=== PATIENT | female | born 1995 | race African-American/Black ===

== ENCOUNTER 2022-07-20 07:43 | Emergency (ER) | payer MEDICAID, SELFPAY ==
--- NOTE | ~2022-07-20 | XR_ITS ---
EXAMINATION: XR hand LT min 3V DATE: 07/20/2022 08:08 INDICATION: Left hand numbness and tingling. TECHNIQUE: 3 views of left hand were obtained. COMPARISON: None. FINDINGS: Bone alignment is normal. No fracture. Joint spaces are well maintained. IMPRESSION: 1. Normal left hand. Reviewed, dictated and finalized at location A. IMPRESSION: 1. Normal left hand.
[2022-07-20 07:48] VITALS: BP 126/90; PULSE 87; RESP 14; TEMP 36.5; O2SAT 100
[2022-07-20] MEDS: NAPROXEN 500 MG TABLET PO (08:17)
--- NOTE | 2022-07-20 08:55 | ED.GENADULT ---
HPI - General Adult General Chief complaint: Neuro Symptoms/Deficit Stated complaint: left hand numbnes Time Seen by Provider: 07/20/22 07:53 Source: patient and RN notes reviewed Mode of arrival: ambulatory Limitations: no limitations History of Present Illness HPI narrative: This is a 27 year old female right hand dominant who presents for evaluation of left hand pain. She has noticed intermittent left palmar hand pain with movement since Friday. 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 She also reports intermittent numb feeling to her left hand. She denies neck pain, arm weakness, headache, injury or any other complaints. She has not taken anything for pain. Related Data Home Medications Medication Instructions Recorded Confirmed No Home Medications 07/20/22 07/20/22 Allergies Allergy/AdvReac Type Severity Reaction Status Date / Time No Known Allergies Allergy Verified 07/20/22 08:00 Review of Systems Constitutional: Constitutional: Denies chills and Denies fatigue PMFSH Past Medical History Medical History (Updated 07/20/22 @ 09:11 by Rehana Jon MD) Patient denies medical problems Surgical History Surgical History (Updated 07/20/22 @ 08:58 by Rehana Jon MD) No pertinent past surgical history Exam Const: General: no acute distress and alert Nutritional Appearance: well nourished Orientation/consciousness: patient oriented x3 HENMT: Head: normal to inspection Eyes: EOM: EOMs intact bilaterally Resp: Effort & Inspection: normal respiratory effort Cardio: Other: strong left radial pulse Skin: General skin exam: normal color Rashes: no rashes Wounds: no wounds Neuro: General: patient oriented x3, moves all extremities and CN's II-XI intact bilaterally Other: sensation intact Extrem: General: no clubbing, cyanosis or edema and no pedal edema Other: FROM, no erythema, mild palmar pain to palpation. sensation intact Psych: Mental Status: mental status grossly normal Affect: normal affect Attitude: cooperative Course Reevaluation(s) Reevaluation #1: I Discussed with patient no abnormality on xray. She may have some tendonitis. I Discussed discharge plan and treatment Date: 07/20/22 Time: 09:08 Vital Signs Vital signs: Vital Signs Temperature 97.7 F 07/20/22 07:48 Pulse Rate 87 07/20/22 07:48 Respiratory Rate 14 07/20/22 07:48 Blood Pressure 126/90 07/20/22 07:48 Pulse Oximetry 100 07/20/22 07:48 Temperature 97.7 F 07/20/22 07:48 Pulse Rate 71 07/20/22 09:26 Respiratory Rate 14 07/20/22 09:26 Blood Pressure 123/87 07/20/22 09:26 Pulse Oximetry 99 07/20/22 09:26 Medical Decision Making Vital Signs Vital Signs: Vital Signs Temperature 97.7 F 07/20/22 07:48 Pulse Rate 87 07/20/22 07:48 Respiratory Rate 14 07/20/22 07:48 Blood Pressure 126/90 07/20/22 07:48 Pulse Oximetry 100 07/20/22 07:48 Temperature 97.7 F 07/20/22 07:48 Pulse Rate 71 07/20/22 09:26 Respiratory Rate 14 07/20/22 09:26 Blood Pressure 123/87 07/20/22 09:26 Pulse Oximetry 99 07/20/22 09:26 Imaging Data Radiologist's impression: ITS Impressions Hand X-Ray 07/20/22 08:18 IMPRESSION: 1. Normal left hand. Discharge Plan Discharge Clinical Impression: Arthralgia of hand, left Patient Disposition: Home, Self-Care Condition: Stable Instructions: Antibiotic Form, Arthralgia (ED), Tendinitis (ED) Additional Instructions: I recommend you get hand brace to wear for at least a couple weeks and take NSAIDS such as aleve or ibuprofen for your pain. Follow up with your primary care provider if you do not have improvement. Prescriptions: No Action No Home Medications Follow-up/Referrals: Yunier Dale MD [Physician] - PHYSICIAN,[employer] [Primary Care Provider] -
[2022-07-20 09:26] VITALS: BP 123/87; PULSE 71; RESP 14; O2SAT 99
== END 2022-07-20 09:26 | disposition home or self-care (01) ==
PROVIDERS: Emergency Provider General Practice
DX: M25.542 Pain in joints of left hand (principal)
CPT/HCPCS: 73130; 99283; A9270

== ENCOUNTER 2022-07-23 16:03 | Emergency (ER) | payer MEDICAID, SELFPAY ==
[2022-07-23 16:30] VITALS: BP 127/81; PULSE 92; RESP 20; TEMP 36.8; O2SAT 99
--- NOTE | 2022-07-23 17:36 | ED.FEMALEGU ---
HPI - Female Genitourinary General Chief complaint: Urogenital-Female Stated complaint: STD CHECK Time Seen by Provider: 07/23/22 17:12 Source: patient Mode of arrival: ambulatory Limitations: no limitations History of Present Illness HPI Narrative: This is a 27-year-old female that presents to the emergency department for possible exposure to an STD. Reports she had unprotected sex about a week ago. She was informed by that partner that he had an STD. She is unsure which STD. Reports she has had some abnormal discharge and some irritation. Denies fever, dysuria, rashes, or hematuria. Related Data Home Medications Medication Instructions Recorded Confirmed No Home Medications 07/20/22 07/20/22 Allergies Allergy/AdvReac Type Severity Reaction Status Date / Time No Known Allergies Allergy Verified 07/20/22 08:00 Review of Systems Review of Systems: CONSTITUTIONAL: Denies fever GENITOURINARY: Denies dysuria or hematuria. SKIN: Denies rash or itching. All systems reviewed & are unremarkable except as noted in HPI and below PMFSH Past Medical History Medical History (Updated 07/23/22 @ 18:41 by Carolina Horowitz PA-C) Patient denies medical problems Surgical History Surgical History (Updated 07/20/22 @ 08:58 by Rehana Jon MD) No pertinent past surgical history Social History Social History (Updated 07/23/22 @ 17:38 by Carolina Horowitz PA-C) Smoking status: Never smoker Exam Narrative: GENERAL: Well-appearing, well-nourished, and in no acute distress. HEAD: Normocephalic, atraumatic. EYES: EOMI. CHEST: Clear to auscultation. No respiratory distress. No wheezes rales or rhonchi HEART: Regular rate and rhythm. No murmur heard. Normal peripheral pulses. ABDOMEN: Soft, nontender, nondistended, normal active bowel sounds. EXTREMITIES: Normal range of motion. No edema. SKIN: Warm, dry, no rash. NEURO: No focal deficits. Alert and oriented x3. PSYCH: Normal mood and affect PELVIC: Normal external genitalia. Normal appearing cervix. Small amount of white/clear discharge in the vaginal vault Course Vital Signs Vital signs: Vital Signs Temperature 98.3 F 07/23/22 16:30 Pulse Rate 92 07/23/22 16:30 Respiratory Rate 20 07/23/22 16:30 Blood Pressure 127/81 07/23/22 16:30 Pulse Oximetry 99 07/23/22 16:30 Oxygen Delivery Room Air 07/23/22 16:30 Temperature 98.3 F 07/23/22 16:30 Pulse Rate 92 07/23/22 16:30 Respiratory Rate 20 07/23/22 16:30 Blood Pressure 127/81 07/23/22 16:30 Pulse Oximetry 99 07/23/22 16:30 Oxygen Delivery Room Air 07/23/22 16:30 MDM - Female Genitourinary MDM Narrative Medical decision making narrative: Patient presents to the emergency department for possible exposure to STD. Reports unprotected sex about a week ago. Reports her partner told her they tested positive for an STD. She is unsure which STD. She reported she was having some vulvovaginal irritation. Also some white discharge. No concerning findings on exam. Bedside test is negative. UA is normal. Trichomonas is negative. Chlamydia, gonorrhea, general genital culture were sent. Patient reports she would like to follow-up for further results. Will be given gynecology on-call. She was given warnings to return to the ER Lab Data Attestation: I reviewed the patient's lab results. Labs: Lab Results 07/23/22 07/23/22 07/23/22 Range/Units 17:36 17:36 18:00 Urine Color Yellow (Yellow) Urine Appearance Slightly cloudy (Clear) Urine pH 6.0 (5.0-9.0) Ur Specific [place] >= 1.030 (1.001-1.035) Urine Protein Negative (Negative) mg/dL Urine Glucose (UA) Negative (Negative) mg/dL Urine Ketones Negative (Negative) mg/dL Ur Blood (Man) Negative (Negative) Urine Nitrate Negative (Negative) Urine Bilirubin Negative (Negative) Urine Urobilinogen 1.0 (<2.0) mg/dL Leukocyte Esterase Rfl Nega
[2022-07-23 18:11] LABS: Appearance Urine Slightly Cloudy (Clear); Bilirubin Urine Negative (Negative); Blood Urine Negative (Negative); Color Urine Yellow (Yellow); Glucose Urine UA Negative (Negative); Ketones Urine Negative (Negative); Leukocyte Esterase Ur Negative LEU/UL (Negative); Nitrate Urine Negative (Negative); Protein Urine Negative (Negative); Specific Grav Ur >= 1.030 (1.001-1.035)
[2022-07-23 18:18] LABS: Mucus Urine Rare /lpf; RBC Urine 0-2 /hpf (0-2); Squamous Epithelial Cell Urine Occasional /hpf (Few); WBC Urine 0-3 /hpf
[2022-07-23 18:27] LABS: Add Urine Microscopic? YES
== END 2022-07-23 18:48 | disposition home or self-care (01) ==
PROVIDERS: Physician Assistant; Emergency Provider Emergency Medicine
DX: N89.8 Other specified noninflammatory disorders of vagina (principal); Z20.2 Contact with and (suspected) exposure to infections with a predominantly sexual mode of transmission
CPT/HCPCS: 81001; 81025; 87070; 87491; 87591; 87808; 99284